=== PATIENT | male | born 1965 | race Caucasian/White ===

== ENCOUNTER → 2021-08-11 | Outpatient (CLI) | payer OTHER ==
[2021-08-11 12:46] VITALS: BP 140/94
[2021-08-11 12:48] VITALS: BP 140/94
[2021-08-11 12:51] VITALS: BP 133/80
[2021-08-11 12:52] VITALS: BP 133/80
[2021-08-11 13:00] VITALS: BP 135/87
[2021-08-11 13:02] VITALS: BP 119/78
--- NOTE | 2021-08-11 13:38 | TEE ---
[place] [address] TRANSESOPHAGEAL ECHOCARDIOGRAM Name: SVETLANAALBANIA Prasad Room: [facility]#: [id number] Admission: 08/11/21 Attend Phys: Jer Murphy MD Discharge: Date of : 63 Date of Service: 08/11/21 1337 Report #: [id number] THIS REPORT FOR: cc: Jer Hughes David J. DO Blick, David R. MD [facility] ~ ADDENDUM APPROVED REPORT Study performed: 08/11/2021 12:37:28 EXAM: Transesophageal Echocardiogram Patient Location: Out-Patient Status: routine BSA: 2.15 HR: 54 bpm BP: 138/84 mmHg Rhythm: NSR Other Information Study Quality: Good Indications Mitral regurgatition Echo Enhancing Agent Indication: Rule out Shunt Agent(s) / Amount(s) Used: Agitated Saline 20 cc Comments: 2 bubble studies Procedure After obtaining informed consent, patient underwent transesophageal echo in the [employer]. Type of Sedation : Conscious Sedation Sedation was administered by Sachi Zuniga RN. Sedation start time: 1245 Case end Time: 1302 Sedation was achieved intravenously with: Versed (6) Fentanyl (75) Transesophageal probe was inserted and advanced into esophagus without difficulty by Jer Murphy MD, [facility]. Echo enhancement indication: R/O Septal defect. Echo enhancement agent administered: Agitated Saline The MIKAYLA was performed without complications. Throughout the procedure, the blood pressure, pulse oximetry, cardiac rhythm, [place] [address] TRANSESOPHAGEAL ECHOCARDIOGRAM Name: ALBANIA MOTA Room: [facility]#: [id number] Admission: 08/11/21 Attend Phys: Jer Murphy MD Discharge: Date of : 63 Date of Service: 08/11/21 1337 Report #: [id number] The patient tolerated the procedure without adverse effects. Recovery from conscious sedation was uneventful and vital signs were stable. Left Ventricle The left ventricle is normal size. There is normal LV segmental wall motion. There is normal left ventricular wall thickness. Left ventricular systolic function is normal. The left ventricular ejection fraction is within the normal range. LVEF is 60-65%. Right Ventricle The right ventricle is normal size. The right ventricular systolic function is normal. Atria Left atrium is mildly dilated. No thrombus is visualized in the left atrium or appendage. The interatrial septum is intact with no evidence for an atrial septal defect. The right atrium size is normal. Aortic Valve The aortic valve is normal in structure. No aortic regurgitation is present. There is no aortic valvular stenosis. Mitral Valve The mitral valve is normal in structure. Moderately severe mitral regurgitation. No evidence of mitral valve stenosis. Tricuspid Valve The tricuspid valve is normal in structure. Trace tricuspid regurgitation. Pulmonic Valve The pulmonary valve is normal in structure. There is no pulmonic valvular regurgitation. Great Vessels The aortic root is normal in size. Pericardium There is no pericardial effusion. <Conclusion> LVEF is 60-65%. Left atrium is mildly dilated. No thrombus is visualized in the left [place] [address] TRANSESOPHAGEAL ECHOCARDIOGRAM Name: ALBANIA MOTA Room: [facility]#: [id number] Admission: 08/11/21 Attend Phys: Jer Murphy MD Discharge: Date of : 63 Date of Service: 08/11/211336 Report #: [id number] Moderately severe mitral regurgitation. The interatrial septum is intact with no evidence for an atrial septal defect. <ELECTRONICALLY SIGNED> By: Jer Murphy MD, FACC 08/11/211336 36 36 Jer Murphy MD, FACC /INF
--- NOTE | 2021-08-12 14:48 | H ---
[place] [address] HISTORY AND PHYSICAL Name: ALBANIA MOTA Room: [facility] DonnySantos#: [id number] Admission: 08/11/21 Attend Phys: Jer Murphy MD, F Discharge: Date of : 63 Report #: [id number] THIS REPORT FOR: cc: Jer Hughes David J. DO Blick, David R. MD [facility] ~ cc: Jer Hughes DO DATE OF SERVICE: 08/11/2021 HISTORY OF PRESENT ILLNESS: The patient is a 56-year-old single white male who was brought to the outpatient department to do a transesophageal echocardiogram. The patient has a long history of a heart murmur. Previous echocardiogram in 2019 showed moderate mitral regurgitation. I recently saw him in the Cardiology Clinic on 07/08 for followup. It appeared that the murmur had gotten worse. However, he denied any recent chest pain, shortness of breath, palpitations, syncope, peripheral edema. I did recommend repeat echocardiogram, was performed 07/15 in my office. This showed an ejection fraction of 60%, dilated left ventricle, dilated left atrium, thickened mitral valve leaflets with moderately severe mitral regurgitation. I recommended MIKAYLA to consider mitral valve repair. The patient actually had a pharmacologic nuclear stress test at [place] in June that showed no ischemia with an ejection fraction 76%. Previous coronary artery calcium score in 2019 was abnormal. Previous carotid Doppler study showed less than 50% stenosis. PAST MEDICAL HISTORY: He has had a wisdom tooth removal. He has a history of hypertension, hyperlipidemia. MEDICATIONS: Include aspirin, Lipitor, metoprolol, Maxzide. ALLERGIES: He has no known drug allergies. FAMILY HISTORY: No history of heart disease. SOCIAL HISTORY: Single, lives in [place], works for the [employer]. No smoking. Used to drink alcohol every day, but no longer abuses alcohol. REVIEW OF SYSTEMS: No history of stroke, asthma, liver disease, kidney disease, cancer, psychiatric, chronic skin condition. PHYSICAL EXAMINATION: GENERAL: Revealed a middle-aged male, appeared in no distress. VITAL SIGNS: His blood pressure was 130/80, pulse is 70. HEENT: He was anicteric. Conjunctivae pink. Mucous membranes moist. NECK: Veins do not appear distended. CHEST: [place] [address] HISTORY AND PHYSICAL Name: ALBANIA MOTA Room: [facility]#: [id number] Admission: 08/11/21 Attend Phys: Jer Murphy MD, F Discharge: Date of : 63 Report #: [id number] HEART: Regular rate and a grade 4 holosystolic murmur at the apex. ABDOMEN: Soft. EXTREMITIES: Had no edema. Dorsalis pedis pulse 2+ bilaterally. SKIN: Cool and dry. IMPRESSION AND RECOMMENDATIONS: 1. Hypertension. The patient is on a beta ness and diuretic. 2. Severe mitral regurgitation. Recommend MIKAYLA to consider mitral valve repair. 3. Mild bilateral carotid stenosis. Asymptomatic. 4. Hyperlipidemia. The patient is on a statin drug. 5. Coronary artery disease. Previous abnormal coronary calcium score. No recent angina. <ELECTRONICALLY SIGNED> By: Jer Murphy MD, FACC 08/12/21 1448 [id number] Murphy MD, FACC /nt
== END | disposition home or self-care (01) ==
LOC: M.CL 09:51
PROVIDERS: ATTEND Internal Medicine Cardiovascular Disease
DX: I08.1 Rheumatic disorders of both mitral and tricuspid valves (principal); I10 Essential (primary) hypertension; E78.5 Hyperlipidemia, unspecified; I25.10 Atherosclerotic heart disease of native coronary artery without angina pectoris; Z98.890 Other specified postprocedural states; Z79.899 Other long term (current) drug therapy